=== PATIENT | male | born 1980 ===

== ENCOUNTER 2018-05-10 21:42 | Emergency (ER) | payer OTHER ==
[2018-05-10 22:13] VITALS: BP 119/79
--- NOTE | 2018-05-10 22:29 | UC ---
Skin Complaint HPI - HPI Summary HPI Summary: Found a tick this evening. Was down in [place] and likely picked up the tick on . Brought the engorged nymph tick in. - History of Current Complaint Chief Complaint: UCSkin Time Seen by Provider: 05/10/18 22:05 Stated Complaint: TICK BITE Hx Obtained From: Patient Onset/Duration: Sudden Onset, Lasting Days - 2, Still Present Timing: Constant Onset Severity: Mild Current Severity: Mild Pain Intensity: 1 Location: Discrete - right lower leg Character: Redness Aggravating Factor(s): Nothing Alleviating Factor(s): Nothing Associated Signs & Symptoms: Positive: Negative - just the tick bite wound on the right leg - Allergy/Home Medications Allergies/Adverse Reactions: Allergies Allergy/AdvReac Type Severity Reaction Status Date / Time No Known Allergies Allergy Verified 05/10/18 22:12 PMH/Surg Hx/FS Hx/Imm Hx Previously Healthy: Yes - Surgical History Surgical History: None - Family History Known Family History: Negative: Cardiac Disease, Hypertension, Diabetes - Social History Occupation: Employed Full-time Lives: With Family Alcohol Use: Occasionally Substance Use Type: None Smoking Status (MU): Never Smoked Tobacco Review of Systems All Other Systems Reviewed And Are Negative: Yes Skin: Positive: Other - tick bite Is Patient Immunocompromised?: No Physical Exam Triage Information Reviewed: Yes Appearance: Well-Appearing, No Pain Distress, Well-Nourished Vital Signs: Initial Vital Signs Temp 98.1 F 05/10/18 22:09 Pulse 72 05/10/18 22:09 Resp 16 05/10/18 22:09 BP 119/79 05/10/18 22:09 Pulse Ox 100 05/10/18 22:09 Vital Signs Reviewed: Yes Neck exam: Normal Respiratory Exam: Normal Cardiovascular Exam: Normal Musculoskeletal Exam: Normal Neurological Exam: Normal Psychological Exam: Normal Skin: Positive: Other - redness with tick wound right inner lower leg Course/Dx - Differential Diagnoses - Skin Complaint Differential Diagnoses: Abscess, Cellulitis, Foreign Body, Tick Born Illness - Diagnoses Provider Diagnosis: Tick bite of right lower leg Discharge - Sign-Out/Discharge Documenting (check all that apply): Patient Departure All imaging exams completed and their final reports reviewed: No Studies - Discharge Plan Condition: Stable Disposition: HOME Prescriptions: DOXYcycline CAP(*) [DOXYcycline 100MG CAP(*)] 100 mg PO BID #14 cap Patient Education Materials: Tick Bite (ED), Doxycycline (By mouth) Referrals: No Primary Care Phys,NOPCP [Primary Care Provider] - - Billing Disposition and Condition Condition: STABLE Disposition: Home
[2018-05-10] MEDS ORDERED: DOXYcycline CAP(*) 100 MG PO ONE (22:36)
== END 2018-05-10 22:50 | disposition home or self-care (01) ==
LOC: UCEAST 21:42
DX: S80.861A Insect bite (nonvenomous), right lower leg, initial encounter (principal); W57.XXXA Bitten or stung by nonvenomous insect and other nonvenomous arthropods, initial encounter; Y92.9 Unspecified place or not applicable
CPT/HCPCS: 99202; A9270-GY; G0463